=== PATIENT | male | born 1935 | race Caucasian/White ===

== ENCOUNTER → 2019-05-11 | Day surgery (SDC) | payer MEDICARE, BC ==
[2019-05-07 14:24] LABS: BASOPHILS # (AUTO) 0.1 (0.0-0.1); EOSINOPHILS # (AUTO) 0.1 (0.0-0.4); EOSINOPHILS % 1.8 % (0.0-6.0); HEMATOCRIT 42.9 % (38.2-49.6); HEMOGLOBIN 14.1 g/dL (14.0-18.0); LYMPHOCYTES # (AUTO) 1.8 (1.0-3.2); LYMPHOCYTES % 37.1 % (18.0-39.1); MEAN CORPUSCULAR HEMOGLOBIN 29.3 pg (28-32); MEAN CORPUSCULAR HGB CONC 32.9 g/dL (31-35); MONOCYTES # (AUTO) 0.4 (0.2-0.8); NEUTROPHILS # (AUTO) 2.5 (2.1-6.9); NEUTROPHILS % 50.7 % (38.7-80.0); PLATELET COUNT 134 x10e3/uL (140-360); RED BLOOD COUNT 4.82 x10e6/uL (4.3-5.7); RED CELL DISTRIBUTION WIDTH 13.9 % (11.7-14.4)
[~2019-05-11] MED LIST: ASPIRIN81 M1 PO; BIOTIN1 MG PEG; CALCIUM600 MG PO; CENTRUM SILVER1 EAC1; CRESTOR5 MG PO; FENTANYL CITRATE/PF 100MCG/2 ML INJ ONE; FISH OIL 1,2001 EACH; HYOSCYAMINE 0.125 MG TAB ONE; MAGNESIUM250 M1 PO; METAMUCIL FIBE1 EACH; MIDAZOLAM HCL 2 MG/2 ML VIAL ONE; MIDODRINE HCL2.5 MG PO; MOVE FREE PO; TAMSULOSIN HCL0.4 MG PO; TYLENOL ARTHRITIS PO; VITAMIN B12-FO1 EACH PO; VITAMIN C1000 MG PO; VITAMIN D1000 UNI1 PO
[2019-05-11 11:00] VITALS: BP 105/66
--- OUTSIDE RECORDS SUMMARY | 2019-05-11 11:12 | XMS REPORT | Clinical Summary ---
Author Author Rashid Sabianist Organization [facility] Address Unknown Phone Unavailable Care Team Providers Care Pompom Maker Name Role Phone Eric Max MD PCP Allergies No Known Allergies Medications End Date Status Medication Sig Dispensed Refills Start Date Active rosuvastatin (CRESTOR) 5 Take 5 mg by 0 MG tablet mouth daily. Active tamsulosin (FLOMAX) 0.4 Take 0.4 mg 0 mg capsule by mouth daily. Active finasteride (PROSCAR) 5 Take 5 mg by 0 mg tablet mouth daily. Active aspirin (ECOTRIN) 81 MG Take 81 mg by 0 enteric coated tablet mouth daily. Active multivitamin (THERAGRAN) Take 1 tablet 0 tablet by mouth daily. Active acetaminophen (TYLENOL) Take 500 mg 0 500 MG tablet by mouth every 6 (six) hours as needed for mild pain. Active ascorbic acid, vitamin C, Take 1,000 mg 0 (vitamin C) 1000 MG by mouth tablet daily. 11/21/2018 midodrine (PROAMATINE) 5 Take 1 tablet 90 tablet 0 MG tablet (5 mg total) 8 by mouth 3 (three) times a day for 30 days. 11/21/2018 fludrocortisone Take 1 tablet 30 tablet 0 (FLORINEF) 0.1 mg tablet (0.1 mg 8 total) by mouth daily for 30 days. 11/21/2018 ipratropium-albuterol Take 3 mL by 270 mL 0 (DUO-NEB) 0.5-2.5 mg/mL nebulization 8 nebulizer every 6 (six) hours while awake for 30 days. Active Problems Problem Noted Date Hypotension 10/21/2018 Benign localized hyperplasia of prostate with urinary retention 10/19/2018 Encounters Care Team Description Date Type Specialty Eric Max MD Thoracic aortic aneurysm without rupture (HCC) (Primary Dx) 05/07/2019 Transcribe Access Orders Eric Max MD 05/01/2019 Transcribe Access Orders Radu Méndez Back pain, unspecified back location, unspecified back pain laterality, unspecified chronicity (Primary Dx) 01/03/2019 Office Visit Orthopedic Surgery Harinder Lovelace MD Dizziness and giddiness; Other cerebral infarction due to occlusion or stenosis of small artery; Cerebral infarction, unspecified mechanism (HCC) 12/07/2018 Hospital Radiology Encounter Harinder Lovelace MD Dizziness and giddiness; Other cerebral infarction due to occlusion or stenosis of small artery; Cerebral infarction, unspecified mechanism (HCC) 12/07/2018 Hospital Radiology Encounter Harinder Lovelace MD Dizziness and giddiness; Other cerebral infarction due to occlusion or stenosis of small artery; Cerebral infarction, unspecified mechanism (HCC) 12/07/2018 Hospital Radiology Encounter Harinder Lovelace MD Dizziness and giddiness (Primary Dx); Other cerebral infarction due to occlusion or stenosis of small artery; Cerebral infarction, unspecified mechanism (HCC) 12/04/2018 Transcribe Access Orders Natalia Helm, INFORMATICS NURSE SPECIALIST 10/19/2018 Anesthesia Urology Event Gigi Johnston MD CYSTO, SALINE TURP (BIPOLAR), LITHOLAPAXY 10/19/2018 Surgery Urology Gigi Johnston MD Benign localized hyperplasia of prostate with urinary retention; Bladder stone 10/19/2018 [facility] General Internal Medicine - Encounter 10/24/2018 Gigi Johnston MD Preop examination (Primary Dx) 10/04/2018 Pre-Admit Pre-Admission Testing Testing Appointment Laurent Long MD Cervical pain 09/13/2018 Hospital Radiology Encounter Laurent Long MD Cervical pain (Primary Dx) 09/07/2018 Transcribe Access Eric Carballo MD Dyspnea, unspecified type 08/14/2018 Hospital Radiology Encounter Eric Max MD Dyspnea, unspecified type (Primary Dx) 08/14/2018 Transcribe Access Orders Eric Max MD Shortness of breath (Primary Dx); Palpitations 08/06/2018 Lab Lab after 05/10/2018 Social History Date Tobacco Use Types Packs/Day Years Used Quit: 1957 Former Smoker 0.5 5 Smokeless Tobacco: Never Used Alcohol Use Drinks/Week oz/Week Comments No Alcohol Habits Answer Date Recorded How often do you have a drink containing alcohol? Never 10/04/2018 How many drinks containing alcohol do you have on Not asked a typical day when you are drinking? How often do you have six or more drinks on one Not asked occasion? Sex Assigned at Date Recorded Not on file Industry Job Start Date Occupation Not on file Not on file Not on file Travel End Travel History Travel Start No recent travel history available. Last Filed Vital Signs Time Taken Vital Sign Reading 10/24/2018 10:41 AM RUBBER PRINTING MACHINE OPERATOR Blood Pressure 111/61 10/24/2018 1:29 PM RUBBER PRINTING MACHINE OPERATOR Pulse 66 10/24/2018 10:41 AM RUBBER PRINTING MACHINE OPERATOR Temperature 36 C (96.8 F) 10/24/2018 1:29 PM RUBBER PRINTING MACHINE OPERATOR Respiratory Rate 18 10/24/2018 1:15 PM RUBBER PRINTING MACHINE OPERATOR Oxygen Saturation 94% - Inhaled Oxygen - Concentration 10/19/2018 12:26 PM RUBBER PRINTING MACHINE OPERATOR Weight 113 kg (249 lb) 10/19/2018 12:26 PM RUBBER PRINTING MACHINE OPERATOR Height 190.5 cm (6' 3") 10/19/2018 12:26 PM RUBBER PRINTING MACHINE OPERATOR Body Mass Index 31.12 Plan of Treatment Care Team Description Date Type Specialty Eric Max MD [address] [facility] [address] [place] [address] 05/22/2019 Appointment Radiology Health Maintenance Due Date Last Done Comments SHINGLES VACCINES (#1) 1986 65+ PNEUMOCOCCAL VACCINE 2001 07/30/2016 (2 of 2 - PPSV23) INFLUENZA VACCINE 05/30/2019 05/19/2018 Procedures Comments Procedure Name Priority Date/Time Associated Diagnosis XR SPINE SCOLIOSIS 2-3 Routine 01/03/2019 Back pain, unspecified VIEWS 1:39 PM RUBBER PRINTING MACHINE OPERATOR back location, unspecified back pain laterality, unspecified chronicity MRA NECK WO CONTRAST Routine 12/07/2018 Dizziness and giddiness 1:51 PM RUBBER PRINTING MACHINE OPERATOR Other cerebral infarction due to occlusion or stenosis of small artery Cerebral infarction, unspecified mechanism (HCC) MRA HEAD WO CONTRAST Routine 12/07/2018 Dizziness and giddiness 1:51 PM RUBBER PRINTING MACHINE OPERATOR Other cerebral infarction due to occlusion or stenosis of small artery Cerebral infarction, unspecified mechanism (HCC) MRI BRAIN WO CONTRAST Routine 12/07/2018 Dizziness and giddiness 1:51 PM RUBBER PRINTING MACHINE OPERATOR Other cerebral infarction due to occlusion or stenosis of small artery Cerebral infarction, unspecified mechanism (HCC) HC COMPLETE BLD COUNT Routine 10/23/2018 W/AUTO DIFF 4:30 AM RUBBER PRINTING MACHINE OPERATOR ESTIMATED GFR Routine 10/23/2018 4:00 AM RUBBER PRINTING MACHINE OPERATOR BASIC METABOLIC PANEL Routine 10/23/2018 4:00 AM RUBBER PRINTING MACHINE OPERATOR ESTIMATED GFR Routine 10/22/2018 4:30 AM RUBBER PRINTING MACHINE OPERATOR B NATRIURETIC PEPTIDE Routine 10/22/2018 4:30 AM RUBBER PRINTING MACHINE OPERATOR HC COMPLETE BLD COUNT Routine 10/22/2018 W/AUTO DIFF 4:30 AM RUBBER PRINTING MACHINE OPERATOR BASIC METABOLIC PANEL Routine 10/22/2018 4:30 AM RUBBER PRINTING MACHINE OPERATOR ARTERIAL BLOOD GAS Routine 10/22/2018 4:00 AM RUBBER PRINTING MACHINE OPERATOR NM LUNG VENTILATION STAT 10/21/2018 PERFUSION 10:52 PM RUBBER PRINTING MACHINE OPERATOR CT CHEST WO CONTRAST Routine 10/21/2018 3:35 PM RUBBER PRINTING MACHINE OPERATOR ECHOCARDIOGRAM 2D Routine 10/21/2018 COMPLETE W MMODE SPECTRAL 9:57 AM RUBBER PRINTING MACHINE OPERATOR COLOR DOPPLER ([id number]) ESTIMATED GFR Routine 10/21/2018 4:15 AM RUBBER PRINTING MACHINE OPERATOR HC COMPLETE BLD COUNT Routine 10/21/2018 W/AUTO DIFF 4:15 AM RUBBER PRINTING MACHINE OPERATOR BASIC METABOLIC PANEL Routine 10/21/2018 4:15 AM RUBBER PRINTING MACHINE OPERATOR ECG 12-LEAD Routine 10/20/2018 9:21 PM RUBBER PRINTING MACHINE OPERATOR XR CHEST 1 VW PORTABLE Routine 10/20/2018 9:00 PM RUBBER PRINTING MACHINE OPERATOR ECG PRE/POST OP STAT 10/19/2018 6:59 PM RUBBER PRINTING MACHINE OPERATOR SURGICAL PATHOLOGY Routine 10/19/2018 REQUEST 3:54 PM RUBBER PRINTING MACHINE OPERATOR CALCULI ANALYSIS WITH Routine 10/19/2018 PHOTO 3:54 PM RUBBER PRINTING MACHINE OPERATOR ID AN ELECTIVE Routine 10/19/2018 SUPRAGLOTTIC AIRWAY 3:17 PM RUBBER PRINTING MACHINE OPERATOR Procedure Note - Aria Brand CRNA - 10/19/2018 3:17 PM RUBBER PRINTING MACHINE OPERATOR ANESTHESIA INTUBATION Performed by: Aria Brand CRNA Authorized by: Anna Tamayo MD Location: OR Urgency: Elective Difficult Airway: No Anesthesio logist: Anna Tamayo MD Performed by: anesthesio logist Preoxygena ray with 100% O2: Yes Mask Ventilatio n: Easy mask Final Airway Type: Supraglott ic airway Final LMA: Ambu LMA Size: 5 Number of Attempts at Approach: 1 CYSTO, SALINE TURP 10/19/2018 Benign localized (BIPOLAR) 1:30 PM RUBBER PRINTING MACHINE OPERATOR hyperplasia of prostate with urinary retention Bladder stone Case Notes REQ 1230 START, @0943 TUCKER R/S FROM 10/10 TO 10/11-09/01 0/18TW Special Needs REQ 1230 START,POSS IBLE EXTENDED RECOVERY NEEDED ESTIMATED GFR Routine 10/04/2018 10:39 AM RUBBER PRINTING MACHINE OPERATOR URINALYSIS SCREEN AND Routine 10/04/2018 Preop examination MICROSCOPY, WITH REFLEX 10:39 AM RUBBER PRINTING MACHINE OPERATOR TO CULTURE CBC HEMOGRAM Routine 10/04/2018 Preop examination 10:39 AM RUBBER PRINTING MACHINE OPERATOR PARTIAL THROMBOPLASTIN Routine 10/04/2018 Preop examination TIME (PTT) 10:39 AM RUBBER PRINTING MACHINE OPERATOR PROTHROMBIN TIME WITH INR Routine 10/04/2018 Preop examination 10:39 AM RUBBER PRINTING MACHINE OPERATOR BASIC METABOLIC PANEL Routine 10/04/2018 Preop examination 10:39 AM RUBBER PRINTING MACHINE OPERATOR URINE CULTURE Routine 10/04/2018 10:39 AM RUBBER PRINTING MACHINE OPERATOR GRAM STAIN Routine 10/04/2018 10:39 AM RUBBER PRINTING MACHINE OPERATOR MRI CERVICAL SPINE WO Routine 09/13/2018 Cervical pain CONTRAST 1:28 PM RUBBER PRINTING MACHINE OPERATOR XR CHEST 2 VW Routine 08/14/2018 Dyspnea, unspecified type 1:45 PM CDT ESTIMATED GFR Routine 08/06/2018 11:20 AM CDT BUN LEVEL Routine 08/06/2018 Shortness of breath 11:20 AM CDT Palpitations CREATININE LEVEL Routine 08/06/2018 Shortness of breath 11:20 AM CDT Palpitations HC COMPLETE BLD COUNT Routine 08/06/2018 Shortness of breath W/AUTO DIFF 11:20 AM CDT Palpitations ELECTROLYTE (CHEM4) Routine 08/06/2018 Shortness of breath 11:20 AM CDT Palpitations after 05/10/2018 Results * XR Spine Scoliosos 2-3 Views (01/03/2019 1:39 PM RUBBER PRINTING MACHINE OPERATOR) Specimen Narrative Performed At [facility] AP and lateral x-ray of the entire spine were done.They show overall his alignment is quite good.He does have multilevel cervical spondylosis. No ntaanael malalignment. Performing Organization Address City/State/Zipcode Phone Number [facility] [address] [place] [address] * MRI Brain Wo Contrast (12/07/2018 1:51 PM RUBBER PRINTING MACHINE OPERATOR) Specimen Narrative Performed At EXAMINATION: MRI BRAIN WO CONTRAST [facility] CLINICAL HISTORY: R42 Dizziness and giddiness, I63.81 Other cerebral infarction due to occlusion or stenosis of small artery, I63.81I63.89R42 COMPARISON:None TECHNIQUE: Multiplanar and multisequence MRI imaging of the brain was obtained without contrast. FINDINGS: There is no definite evidence of acute infarct, intracranial hemorrhage or mass, hydrocephalus or midline shift. There are scattered nonspecific white matter changes. There is mild nonspecific enlargement of the ventricles and extra axial space greater in the anterior region. The orbits, sinuses and mastoid air cells do not show acute abnormality. There is pseudophakia. The nasal septum deviates towards the right. IMPRESSION: No acute findings in the brain or extra axial region. [facility]-[id number] Procedure Note Interface, Radiology Results Incoming - 12/07/2018 2:30 PM RUBBER PRINTING MACHINE OPERATOR EXAMINATION: MRI BRAIN WO CONTRAST CLINICAL HISTORY: R42 Dizziness and giddiness, I63.81 Other cerebral infarction due to occlusion or stenosis of small artery, I63.81 I63.89 R42 COMPARISON: None TECHNIQUE: Multiplanar and multisequence MRI imaging of the brain was obtained without contrast. FINDINGS: There is no definite evidence of acute infarct, intracranial hemorrhage or mass, hydrocephalus or midline shift. There are scattered nonspecific white matter changes. There is mild nonspecific enlargement of the ventricles and extra axial space greater in the anterior region. The orbits, sinuses and mastoid air cells do not show acute abnormality. There is pseudophakia. The nasal septum deviates towards the right. IMPRESSION: No acute findings in the brain or extra axial region. [facility]-[id number] Performing Organization Address City/State/Zipcode Phone Number [facility] [address] [place] [address] * MRA Neck Wo Contrast (12/07/2018 1:51 PM RUBBER PRINTING MACHINE OPERATOR) Specimen Narrative [facility] At [facility] EXAMINATION: MRA NECK WO CONTRAST CLINICAL HISTORY: R42 Dizziness and giddiness, I63.81 Other cerebral infarction due to occlusion or stenosis of small artery, I63.81I63.89R42. Evaluate for artery stenosis COMPARISON:None TECHNIQUE: 2-D and 3-D [id number] MRA images of the cervical vessels were obtained with multiplanar and 3-D reconstructive algorithms. FINDINGS: Unremarkable MRA of the neck with no significant stenosis by NASCET criteria. The left vertebral artery is dominant. Artifacts obscure some detail of the soft tissue structures in the neck. No significant incidental thyroid gland mass is seen. IMPRESSION: Unremarkable MRA of the neck with no significant stenosis by NASCET criteria. [facility]-[id number] Procedure Note Interface, Radiology Results Incoming - 12/07/2018 2:30 PM RUBBER PRINTING MACHINE OPERATOR EXAMINATION: MRA NECK WO CONTRAST CLINICAL HISTORY: R42 Dizziness and giddiness, I63.81 Other cerebral infarction due to occlusion or stenosis of small artery, I63.81 I63.89 R42. Evaluate for artery stenosis COMPARISON: None TECHNIQUE: 2-D and 3-D [id number] MRA images of the cervical vessels were obtained with multiplanar and 3-D reconstructive algorithms. FINDINGS: Unremarkable MRA of the neck with no significant stenosis by NASCET criteria. The left vertebral artery is dominant. Artifacts obscure some detail of the soft tissue structures in the neck. No significant incidental thyroid gland mass is seen. IMPRESSION: Unremarkable MRA of the neck with no significant stenosis by NASCET criteria. [facility]-[id number] Performing Organization Address City/State/Zipcode Phone Number [facility] [address] [place] [address] * MRA Head Wo Contrast (12/07/2018 1:51 PM RUBBER PRINTING MACHINE OPERATOR) Specimen Narrative Performed At EXAMINATION: MRA HEAD WO CONTRAST [facility] CLINICAL HISTORY: R42 Dizziness and giddiness, I63.81 Other cerebral infarction due to occlusion or stenosis of small artery, I63.81I63.89R42. Evaluate for artery stenosis COMPARISON:None. TECHNIQUE: [id number] MRA images of the cabazon of Roberto vessels were obtained with multiplanar and 3-D reconstructive algorithms. FINDINGS: There is flow in the anterior communicating artery. There is no evidence of significant focal stenosis in the major arteries forming the cabazon of Roberto. The distal vertebral and basilar and distal internal carotid arteries do not show significant focal stenosis. I do not see definite evidence of aneurysm or arterial venous malformation. IMPRESSION: Unremarkable MRA of the cabazon of Roberto with no significant abnormality. [facility]-[id number] Procedure Note Interface, Radiology Results Incoming - 12/07/2018 2:31 PM RUBBER PRINTING MACHINE OPERATOR EXAMINATION: MRA HEAD WO CONTRAST CLINICAL HISTORY: R42 Dizziness and giddiness, I63.81 Other cerebral infarction due to occlusion or stenosis of small artery, I63.81 I63.89 R42. Evaluate for artery stenosis COMPARISON: None. TECHNIQUE: [id number] MRA images of the cabaz[place] vessels were obtained with multiplanar and 3-D reconstructive algorithms. FINDINGS: There is flow in the anterior communicating artery. There is no evidence of significant focal stenosis in the major arteries forming the cabazon of Roberto. The distal vertebral and basilar and distal internal carotid arteries do not show significant focal stenosis. I do not see definite evidence of aneurysm or arterial venous malformation. IMPRESSION: Unremarkable MRA of the cabazon of Roberto with no significant abnormality. [facility]-[id number] Performing Organization Address City/State/Zipcode Phone Number [facility] [address] [place] [address] * CBC with platelet and differential (10/23/2018 4:30 AM RUBBER PRINTING MACHINE OPERATOR) Only the most recent of 4 results within the time period is included. WBC 6.89 4.50 - 11.00 k/uL [facility] RBC 3.99 (L) 4.40 - 6.00 m/uL [facility] HGB 11.7 (L) 14.0 - 18.0 g/dL [facility] HCT 35.7 (L) 41.0 - 51.0 % [facility] MCV 89.5 82.0 - 100.0 fL [facility] MCH 29.3 27.0 - 34.0 pg [facility] MCHC 32.8 31.0 - 37.0 g/dL [facility] RDW - SD 42.6 37.0 - 55.0 fL [facility] MPV 11.4 8.8 - 13.2 fL [facility] Platelet count 123 (L) 150 - 400 k/uL [facility] Nucleated RBC 0.00 /100 WBC [facility] Neutrophils 66.2 39.0 - 69.0 % [facility] Lymphocytes 21.6 (L) 25.0 - 45.0 % [facility] Monocytes 9.3 0.0 - 10.0 % [facility] Eosinophils 1.9 0.0 - 5.0 % [facility] Basophils 0.7 0.0 - 1.0 % [facility] Immature 0.3Comment: "Immature 0.0 - 1.0 % KRESS granulocytes granulocytes" (promyelocytes, ORIENTAL ORTHODOX myelocytes, metamyelocytes) [facility] Specimen Blood Performing Organization Address City/State/Zipcode Phone Number [facility] DEPARTMENT OF [address] [place] [address] PATHOLOGY AND GENOMIC MEDICINE [place] [id number] * Estimated GFR (10/23/2018 4:00 AM RUBBER PRINTING MACHINE OPERATOR) Only the most recent of 5 results within the time period is included. [facility] Estimated GFR 68 mL/min/1.73 m2 KRESS Comment: [facility] rpretation G1 >=90 Normal or high G2 60-89Mildly decreased [id number] Mildly to moderately decreased [id number] Moderately to severely decreased G4 15-29Severely decreased G5 <15Kidney failure The eGFR was calculated using the Chronic Kidney Disease Epidemiology Collaboration (CKD-EPI) equation. Interpretation is based on recommendations of the National Kidney Foundation-Kidney Disease Outcomes Quality Initiative (NKF-KDOQI) published in 2014. Specimen Plasma specimen Performing Organization Address City/[facility] Phone Number [facility] DEPARTMENT [address] * Basic metabolic panel (10/23/2018 4:00 AM RUBBER PRINTING MACHINE OPERATOR) Only the most recent of 4 results within the time period is included. [facility] Sodium 139 135 - 148 mEq/L [facility] Potassium 3.5 3.5 - 5.0 mEq/L [facility] Chloride 101 98 - 112 mEq/L [facility] CO2 26 24 - 31 mEq/L [facility] Anion gap 12@ANIO 7 - 15 mEq/L [facility] BUN 21 8 - 23 mg/dL [facility] Creatinine 1.02 0.70 - 1.20 mg/dL [facility] Glucose 136 (H) 65 - 99 mg/dL [facility] Calcium 8.9 8.8 - 10.2 mg/dL [facility] Specimen Plasma specimen Performing Organization Address City/[facility] Phone Number [facility] [place] [address] PATHOLOGY AND [facility] MEDICINE [address] * B natriuretic peptide (10/22/2018 4:30 AM RUBBER PRINTING MACHINE OPERATOR) [facility] BNP 586 (H) 0 - 100 pg/mL [facility] Specimen Blood Performing Organization Address City/[facility] Phone Number [facility] [place] [address] PATHOLOGY AND [facility] MEDICINE [address] * Arterial blood gas (10/22/2018 4:00 AM RUBBER PRINTING MACHINE OPERATOR) pH, arterial 7.37 7.35 - 7.45 [facility] pCO2, arterial 49 (H) 35 - 45 mmHg [facility] pO2, arterial 97 (H) 80 - 90 mmHg [facility] Bicarbonate, 27.7 21.0 - 28.0 mmol/L [facility] Base excess, 2 -2 - 2 mEq/L [facility] O2 saturation, 98 95 - 100 % [facility] Specimen Blood Performing Organization Address [facility] Phone Number [facility] DEPARTMENT OF [address] [place] [address] PATHOLOGY AND GENOMIC MEDICINE [address] [address] [facility] * NM Lung Ventilation Perfusion (10/21/2018 10:52 PM RUBBER PRINTING MACHINE OPERATOR) Specimen Narrative Performed At PROCEDURE:KY LUNG VENTILATION PERFUSION [facility] INDICATION:Dyspnea. COMPARISON:CT chest dated same day. TECHNIQUE:Planar ventilation images were acquired after the inhalation of 15 mCi of Xe-133 gas. Planar perfusion images were acquired after the IV administration of 5 mCi of Tc-99m MAA. FINDINGS:Ventilation images demonstrate decreased ventilation to the lung periphery and bases. Washout images demonstrate basilar gas trapping.Perfusion images demonstrate decreased perfusion to the lung periphery and bases, matching the ventilation images.No mismatched defects. IMPRESSION: 1.Low probability for PE. [facility]-[id number] Procedure Note Interface, Radiology Results Incoming - 10/21/2018 11:14 PM RUBBER PRINTING MACHINE OPERATOR PROCEDURE: NM LUNG VENTILATION PERFUSION INDICATION: Dyspnea. COMPARISON: CT chest dated same day. TECHNIQUE: Planar ventilation images were acquired after the inhalation of 15 mCi of Xe-133 gas. Planar perfusion images were acquired after the IV administration of 5 mCi of Tc-99m MAA. FINDINGS: Ventilation images demonstrate decreased ventilation to the lung periphery and bases. Washout images demonstrate basilar gas trapping. Perfusion images demonstrate decreased perfusion to the lung periphery and bases, matching the ventilation images. No mismatched defects. IMPRESSION: 1. Low probability for PE. [id number] Performing Organization Address City/[facility] Phone Number [facility] [address] [place] [address] * CT Chest Wo Contrast (10/21/2018 3:35 PM RUBBER PRINTING MACHINE OPERATOR) Specimen Narrative Performed At EXAMINATION: RADIANT CT CHEST WO CONTRAST CLINICAL HISTORY: HypoxiaILD protocol TECHNIQUE: Multiple axial images of the chest were obtained without intravenous contrast. The lack of intravenous contrast reduces the sensitivity of detecting solid organ disease and evaluating vasculature. Sagittal and coronal computerized reformatted images were also obtained. DOSE REDUCTION: CT imaging was performed with iterative reconstruction technique and/or automated exposure control to reduce radiation dose. COMPARISON: Single view chest from 10/20/2018 and MRA chest from 01/23/2018 and abdominal MRI from 03/2012 FINDINGS: 1.Bilateral lower lobe bronchiectasis is noted with peribronchial thickening. No honeycombing. No significant interstitial thickening. No focal areas of consolidation. No noncalcified pulmonary nodules. No pleural effusions. Vague ground glass airspace disease is noted which is nonspecific. The trachea and main bronchi are clear. 2.Mild bilateral air trapping is seen on inspiratory versus expiratory CT images. 3.No mediastinal, hilar, or axillary lymphadenopathy. 4.A stable ascending thoracic aortic aneurysm is again seen measuring 4.9 cm in greatest AP diameter. This is unchanged when compared to previous MRA chest from 01/23/2018. The aortic arch measures 4.7 cm in greatest AP diameter. The descending thoracic aorta at the level of the pulmonary arteries measures 3.3 cm and at the level of the hiatus measures 2.7 cm. A minimal amount of calcified atherosclerotic disease is noted. 5.The cardiac size is normal. No pericardial effusion. 6.The pulmonary trunk is normal in caliber. 7.A low-density nodule is seen within the inferior margin of the right lobe the thyroid measuring 1.7 cm. This could be better evaluated with ultrasound as clinically indicated. The left lobe of the thyroid contains some dystrophic calcification inferiorly. 8.The bones of the chest are within normal limits. 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 9.Limited, noncontrast evaluation of the upper abdomen suggests 2 exophytic cysts arising from the superior pole of the right kidney, and multiple small foci of decreased attenuation within the right lobe the liver. These most likely represent cysts which were demonstrated on prior MRI from 03/2012. Cholelithiasis. IMPRESSION: 1.Mild bilateral lower lobe bronchiectasis with bilateral air trapping. 2.Stable appearing ascending thoracic aortic aneurysm measuring 4.9 cm in greatest AP diameter. 3.Other incidental findings as above. [id number] Procedure Note Interface, Radiology Results Incoming - 10/21/2018 3:55 PM RUBBER PRINTING MACHINE OPERATOR EXAMINATION: CT CHEST WO CONTRAST CLINICAL HISTORY: Hypoxia ILD protocol TECHNIQUE: Multiple axial images of the chest were obtained without intravenous contrast. The lack of intravenous contrast reduces the sensitivity of detecting solid organ disease and evaluating vasculature. Sagittal and coronal computerized reformatted images were also obtained. DOSE REDUCTION: CT imaging was performed with iterative reconstruction technique and/or automated exposure control to reduce radiation dose. COMPARISON: Single view chest from 10/20/2018 and MRA chest from 01/23/2018 and abdominal MRI from 03/2012 FINDINGS: 1. Bilateral lower lobe bronchiectasis is noted with peribronchial thickening. No honeycombing. No significant interstitial thickening. No focal areas of consolidation. No noncalcified pulmonary nodules. No pleural effusions. Vague ground glass airspace disease is noted which is nonspecific. The trachea and main bronchi are clear. 2. Mild bilateral air trapping is seen on inspiratory versus expiratory CT images. 3. No mediastinal, hilar, or axillary lymphadenopathy. 4. A stable ascending thoracic aortic aneurysm is again seen measuring 4.9 cm in greatest AP diameter. This is unchanged when compared to previous MRA chest from 01/23/2018. The aortic arch measures 4.7 cm in greatest AP diameter. The descending thoracic aorta at the level of the pulmonary arteries measures 3.3 cm and at the level of the hiatus measures 2.7 cm. A minimal amount of calcified atherosclerotic disease is noted. 5. The cardiac size is normal. No pericardial effusion. 6. The pulmonary trunk is normal in caliber. 7. A low-density nodule is seen within the inferior margin of the right lobe the thyroid measuring 1.7 cm. This could be better evaluated with ultrasound as clinically indicated. The left lobe of the thyroid contains some dystrophic calcification inferiorly. 8. The bones of the chest are within normal limits. 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 9. Limited, noncontrast evaluation of the upper abdomen suggests 2 exophytic cysts arising from the superior pole of the right kidney, and multiple small foci of decreased attenuation within the right lobe the liver. These most likely represent cysts which were demonstrated on prior MRI from 03/2012. Cholelithiasis. IMPRESSION: 1. Mild bilateral lower lobe bronchiectasis with bilateral air trapping. 2. Stable appearing ascending thoracic aortic aneurysm measuring 4.9 cm in greatest AP diameter. 3. Other incidental findings as above. [facility]-[id number] Performing Organization Address City/State/Zipcode Phone Number [facility] [address] [place] [address] * Echocardiogram complete w contrast and 3D if needed (10/21/2018 9:57 AM RUBBER PRINTING MACHINE OPERATOR) Specimen Narrative Performed At [facility] Echocardiography Report [id number] [facility], [facility] [address], [place] [id number] Pat.Name:LAKSHMI SHEPPARD Pat.ID:[id number] St.Date: 10/21/2018Refer.MD:Gigi Johnston MD Exam Time: 9:06:00 AMStudy Type:Routine Echo Height:75inWeight:250lb BSA: 2.41 m2 DOBAge:1935,83Y Sex: MALEBP:80/42 HR:52 bpmSonogrphr: PIERCE Nuñez, [facility] Pat. Stat.:Inpatient Room:[facility] Study Status:Final Echo Event ID:[id number] Order ID:[id number] Reason for Study:Hypotension Procedures:2D Echo, Colorflow Doppler, Intravenous Optison Contrast Race:C SUMMARY: Normal biventricular size and systolic function. Normal LV filling pressure. No pericardial effusion and no hemodynamically significant valvular pathology. FINDINGS: LV: LV size is normal. There is mild concentric LV hypertrophy. LVEF is normal. Overall wall motion is normal. Estimated EFis 60-64%. RV: RV size is normal. RV systolic function is normal. LA: LA volume is severely enlarged. RA: RA volume is normal. AO: Aortic root diameter is normal in size. CATALINO: No pericardial effusion. AV: Focal calcification of AV leaflets. A trace of aortic regurgitation. MV: Thickened and/or calcified mitral annulus. PV: No structural PV abnormalities noted. TV: No structural TV abnormalities noted. Berman: LV filling pressure is normal. Diastolic dysfunction Grade I (Mild):Impaired relaxation with normal LV filling pressures. Other:Insufficient TR jet to estimate PA systolic pressure. MEASUREMENTS: 2D Parasternal [place] LVOT 2.5 cmLA Ds5.3 cm LVIDd4.9 cmIndex2 cm/m Ao An2.1 cm LVIDs3.3 cmAo Rtd 4 cm Index1.7 cm/m LV%fs 32.7 % LV Agkt588.7 g(122-174) IVSd 1.3 cmLVM Eltnf677.3 g/m2 LVPWd1.3 cmRWT0.5 LA Sng Plane LA Area 36.1 cm2(8.8-23.4) LA Vol 157.5 ml Index65.4 ml/m LA LngAx 7.5 cm Signed 10/21/2018 09:05 PM Shruthi Shane M.D. Procedure Note Interface, Radiology Results In - 10/21/2018 9:05 PM RUBBER PRINTING MACHINE OPERATOR Echocardiography Report [id number] [place] [address] Pat.Name: LAKSHMI SHEPPARD Pat.ID: [id number] .Date: 10/21/2018 Refer.MD: Gigi Johnston MD Exam Time: 9:06:00 AM Study Type:Routine Echo Height: 75in Weight: 250lb BSA: 2.41 m2 Age: 8 1935,83Y Sex: MALE BP: 80/42 HR: 52 bpm Sonogrphr: PIERCE Nuñez, [facility] Pat. Stat.:Inpatient Room: [facility] Study Status:Final Echo Event ID:[id number] Order ID: [id number] Reason for Study:Hypotension Procedures:2D Echo, Colorflow Doppler, Intravenous Optison Contrast Race: C SUMMARY: Normal biventricular size and systolic function. Normal LV filling pressure. No pericardial effusion and no hemodynamically significant valvular pathology. FINDINGS: LV: LV size is normal. There is mild concentric LV hypertrophy. LV EF is normal. Overall wall motion is normal. Estimated EF is 60-64%. RV: RV size is normal. RV systolic function is normal. LA: LA volume is severely enlarged. RA: RA volume is normal. AO: Aortic root diameter is normal in size. CATALINO: No pericardial effusion. AV: Focal calcification of AV leaflets. A trace of aortic regurgitation. MV: Thickened and/or calcified mitral annulus. PV: No structural PV abnormalities noted. TV: No structural TV abnormalities noted. Berman: LV filling pressure is normal. Diastolic dysfunction Grade I (Mild): Impaired relaxation with normal LV filling pressures. Other: Insufficient TR jet to estimate PA systolic pressure. MEASUREMENTS: 2D Parasternal [place] LVOT 2.5 cm LA Ds 5.3 cm LVIDd 4.9 cm Index 2 cm/m Ao An 2.1 cm LVIDs 3.3 cm Ao Rtd 4 cm Index 1.7 cm/m LV%fs 32.7 % LV Mass 253.7 g (122-174) IVSd 1.3 cm LVM Index 105.3 g/m2 LVPWd 1.3 cm RWT 0.5 LA Sng Plane LA Area 36.1 cm2 (8.8-23.4) LA Vol 157.5 ml Index 65.4 ml/m LA LngAx 7.5 cm Signed 10/21/2018 09:05 PM Shruthi Shane M.D. Performing Organization Address [facility] Phone Number [facility] [address] [place] [address] * ECG 12 lead (10/20/2018 9:21 PM RUBBER PRINTING MACHINE OPERATOR) Ventricular 65 [facility] MUSE rate Atrial rate 65 [facility] ID interval 162 [facility] QRSD interval 98 [facility] QT interval 410 [facility] QTC interval 426 [facility] MUSE P axis 1 15 HM MUSE QRS axis 1 26 [facility] MUSE T wave axis 56 [facility] MUSE EKG impression Sinus rhythm with occasional [facility] MUSE premature ventricular complexes-Otherwise normal ECG-In automated comparison with ECG of 19-OCT-2018 18:59,-premature ventricular complexes are now present- Specimen Narrative Performed At Performing Organization Address [facility] [place] Phone Number [facility] MUSE [address] [place] [address] * XR Chest 1 Vw Portable (10/20/2018 9:00 PM RUBBER PRINTING MACHINE OPERATOR) Specimen Narrative Performed At EXAMINATION: XR CHEST 1 VW PORTABLE [facility] INDICATION: Asphyxia and hypoxemia COMPARISON: 08/14/2018 IMPRESSION: Low lung volumes. New patchy linear opacities in both lung bases, in part due to atelectasis but also concerning for superimposed aspiration/pneumonia. Trace bilateral pleural effusions. No pneumothorax. Unchanged cardiomediastinal silhouette given differences in lung inflation. Aortic calcifications. Multifocal osseous degenerative changes. [facility]-[id number] Procedure Note Interface, Radiology Results Incoming - 10/20/2018 9:52 PM RUBBER PRINTING MACHINE OPERATOR EXAMINATION: XR CHEST 1 VW PORTABLE INDICATION: Asphyxia and hypoxemia COMPARISON: 08/14/2018 IMPRESSION: Low lung volumes. New patchy linear opacities in both lung bases, in part due to atelectasis but also concerning for superimposed aspiration/pneumonia. Trace bilateral pleural effusions. No pneumothorax. Unchanged cardiomediastinal silhouette given differences in lung inflation. Aortic calcifications. Multifocal osseous degenerative changes. [facility]-[id number] Performing Organization Address City/[facility] Phone Number [facility] [address] [place] [address] * ECG Pre/Post Op (10/19/2018 6:59 PM RUBBER PRINTING MACHINE OPERATOR) Ventricular 72 [facility] rate Atrial rate 72 [facility] ID interval 154 [facility] QRSD interval 88 [facility] QT interval 394 [facility] QTC interval 431 [facility] P axis 1 68 [facility] QRS axis 1 49 [facility] T wave axis 71 [facility] MUSE EKG impression Normal sinus rhythm-Normal [facility] MUSE ECG-In automated comparison with ECG of -SEP-2013 10:51,-No significant change was found- Specimen Narrative Performed At Performing Organization Address City/State/Zipcode Phone Number [facility] [address] [place] [address] * Calculi analysis with photo (10/19/2018 3:54 PM RUBBER PRINTING MACHINE OPERATOR) Pathologist [facility] [place] Calculi mass See NoteComment: Specimen mg [facility] mass: 1.49 grams Calculi number Numerous [facility] Calculi size Various mm [facility] Calculi See Note [facility] descrption Comment: Specimen consists of numerous, various sized (1 mm to 9 mm), brown/perea, irregular calculi fragments. Calculi See Note [facility] composition Comment: Calculi composed primarily of: 40% calcium oxalate monohydrate, 10% calcium oxalate dihydrate, and 50% calcium phosphate (hydroxy- and carbonate- apatite). INTERPRETIVE INFORMATION: Calculi (Stone) analysis Calculi are the products of physiological processes that yield crystalline compounds in a matrix of biological compounds and blood.Matrix components are not reported.The clinically significant crystalline components identified in calculi specimens are reported.Gross description may not be consistent with composition determined by FTIR analysis. EER calculi See Note [facility] (stone) Comment: analysis and Access [facility] Enhanced Report photo using either link below: -Direct access: [email or web address] -Enter Username, Password: [email or web address] Username: [email or web address] Password: [email or web address] Performed by [facility], [address] [place] [address] [email or web address], Ellis Martinez MD - Lab. Director Specimen Serum Narrative Performed At [address] LABORATORY [facility] Performing Organization Address City/State/Zipcode Phone Number [facility] [address] [place] [address] [facility] [address] [place] [address] * Surgical pathology request (10/19/2018 3:54 PM RUBBER PRINTING MACHINE OPERATOR) [facility] DEPARTMENT OF PATHOLOGY AND GENOMIC MEDICINE Surgical See link below for PDF Lab [facility] DEPARTMENT pathology Report OF PATHOLOGY report AND GENOMIC MEDICINE Result status This is Final Report for [facility] DEPARTMENT [id number] OF PATHOLOGY AND GENOMIC MEDICINE Specimen Narrative Performed At [address] DEPARTMENT OF [facility] PATHOLOGY AND GENOMIC MEDICINE Performing Organization Address City/[facility]/Zipcode Phone Number [facility] [place] [address] PATHOLOGY AND GENOMIC MEDICINE * Urinalysis screen and microscopy, with reflex to culture (10/04/2018 10:39 AM RUBBER PRINTING MACHINE OPERATOR) Specimen site Clean catch [facility] Color, UA Dark Yellow [facility] Appearance, UA Clear [facility] Specific 1.019 1.001 - 1.035 KRESS gravity, [facility] pH, UA 6.0 5.0 - 8.5 [facility] Protein, UA 2+ (A) Negative [facility] Glucose, UA Negative Negative [facility] Ketones, UA Negative Negative [facility] Bilirubin, UA Negative Negative [facility] Blood, UA Negative Negative [facility] Nitrite, UA Negative Negative [facility] Urobilinogen, <2.0 <2.0 [facility] Leukocyte Trace (A) Negative [facility] esterase, [facility] Epithelial <1 /HPF [facility] cells, [facility] WBC, UA 3 (H) 0 - 1 /HPF [facility] RBC, UA <1 0 - 5 /HPF [facility] Bacteria, UA Few None seen [facility] Yeast, UA None seen [facility] Yeast with None seen [facility] pseudohyphae, [facility] Hyaline casts, >20 (A) /LPF [facility] Specimen Urine Performing Organization Address City/State/Zipcode Phone Number [facility] [place] [address] PATHOLOGY AND [facility] MEDICINE [address] * Partial thromboplastin time, activated (10/04/2018 10:39 AM RUBBER PRINTING MACHINE OPERATOR) Pathologist [facility] [place] PTT 30.0 23.0 - 36.0 sec KRESS Comment: ORIENTAL ORTHODOX PTT therapeutic range for HOSPITAL unfractionated heparin is 61.0-112.0 seconds which corresponds to Anti-Xa 0.3-0.7 U/ml. Specimen Blood Performing Organization Address City/[facility]/Zipcode Phone Number [facility] [place] [address] PATHOLOGY AND [facility]ICINE [address] * Prothrombin time with INR (10/04/2018 10:39 AM RUBBER PRINTING MACHINE OPERATOR) Pathologist [facility] [place] Prothrombin 13.3 11.5 - 14.5 sec [facility] INR 1.0 KRESS Comment: ORIENTAL ORTHODOX The International Normalized HOSPITAL Ratio (INR) is a therapeutic monitoring tool for patients who are stable on oral anticoagulant therapy. An INR of 2.0-3.0 is suggested for deep vein thrombosis/pulmonary embolism. Specimen Blood Performing Organization Address City/[facility] Phone Number [facility] [place] [address] PATHOLOGY AND [facility] [address] * Gram stain (10/04/2018 10:39 AM RUBBER PRINTING MACHINE OPERATOR) [facility] Gram stain Rare WBC's KRESS result No organisms seen [facility] Comment: HOSPITAL Specimen Information Specimen Source: Urine Specimen Site: Clean catch Specimen Urine Performing Organization Address City/[facility]/Zipcode Phone Number [facility] DEPARTMENT OF [address] [place] [address] PATHOLOGY AND [facility] [address] * CBC hemogram (10/04/2018 10:39 AM RUBBER PRINTING MACHINE OPERATOR) [facility] WBC 5.43 4.50 - 11.00 k/uL [facility] RBC 4.53 4.40 - 6.00 m/uL [facility] HGB 13.8 (L) 14.0 - 18.0 g/dL [facility] HCT 42.0 41.0 - 51.0 % [facility] MCV 92.7 82.0 - 100.0 fL [facility] MCH 30.5 27.0 - 34.0 pg [facility] MCHC 32.9 31.0 - 37.0 g/dL [facility] RDW - SD 45.9 37.0 - 55.0 fL [facility] MPV 11.1 8.8 - 13.2 fL [facility] Platelet count 134 (L) 150 - 400 k/uL [facility] Nucleated RBC 0.00 /100 WBC [facility] Specimen Blood Performing Organization Address City/[facility] Phone Number [facility] DEPARTMENT OF [address] [place] [address] PATHOLOGY AND GENOMIC MEDICINE [address] * Urine culture (10/04/2018 10:39 AM RUBBER PRINTING MACHINE OPERATOR) Urine culture Mixed jennifer <=10-3 col/cc KRESS isolate Comment: ORIENTAL ORTHODOX Specimen Information HOSPITAL Specimen Source: Urine Specimen Site: Clean catch Specimen Urine Performing Organization Address City/[facility] Phone Number [facility] [place] [address] PATHOLOGY AND GENOMIC MEDICINE [address] * MRI Cervical Spine Wo Contrast (09/13/2018 1:28 PM RUBBER PRINTING MACHINE OPERATOR) Specimen Narrative Performed At EXAMINATION: MRI CERVICAL SPINE WO CONTRAST HM [facility] CLINICAL HISTORY: M54.2 Cervicalgia, M54.2 COMPARISON:None TECHNIQUE: Multiplanar multisequence noncontrast enhanced examination was performed of the cervical spine. FINDINGS: There is straightening of the cervical lordosis. The craniovertebral junction is unremarkable. There is decreased T2 signal intensity in multiple discs. C2-3: There is mild central spondylosis and ligamentum flavum hypertrophy. There is no significant central canal stenosis. There are facet and uncovertebral joint hypertrophic changes with mild to moderate foramen stenosis on the axial gradient echo images in part congenital in nature. C3-4: There is greater peripheral disc space narrowing with dorsal spondylosis touching the anterior central cord. There is ligamentum flavum hypertrophy. There is mild narrowing of the AP dimension of the central subarachnoid space. There is severe foramen stenosis from facet and uncovertebral joint hypertrophic changes. Spondylosis extends near the right nerve roots in the lateral subarachnoid space. C4-5: There is mild anterolisthesis with greater anterior disc space narrowing. There is uncovered disc and spondylosis with central protrusion touching the anterior cord. There may be mass effect on the ventral nerve roots. There is mild narrowing of the AP dimension of the central subarachnoid space. The severe foramen stenosis from facet and uncovertebral joint hypertrophic changes. C5-6: There is severe peripheral disc space narrowing.There is dorsal spondylosis touching the anterior cord with possible mass effect on the ventral nerve roots. There is ligamentum flavum hypertrophy indenting the posterior lateral subarachnoid space. There is moderate narrowing of the AP dimension of the central subarachnoid space. There is severe foramen stenosis from facet and uncovertebral joint hypertrophy. C6-7: There is severe disc space narrowing with surrounding endplate signal changes. There is dorsal spondylosis narrowing the anterior subarachnoid space with possible mass effect on the left greater than right ventral nerve root. There is ligamentum flavum hypertrophy and mild narrowing of the AP dimension of the central subarachnoid space. There is severe left and moderate right foramen stenosis from facet and uncovertebral joint hypertrophic changes on the gradient echo images. The axial T2 weighted images suggest there may be greater right foramen stenosis. C7-T1: There is greater peripheral disc space narrowing with endplate degenerative signal changes.There is mild dorsal spondylosis and ligamentum flavum hypertrophy without significant central canal stenosis. There is facet and uncovertebral joint hypertrophic changes with severe left and moderate to severe right foramen stenosis. There are mild degenerative changes in thoracic region with mild anterior indentation on the subarachnoid space from spondylosis. The study was not performed for proper imaging of the soft tissue structures in the neck and upper chest. No definite incidental thyroid mass is seen although artifacts obscure the thyroid gland region. The left vertebral artery is larger than the right. 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 [id number] Procedure Note Hm Interface, Radiology Results Incoming - 09/13/2018 4:53 PM RUBBER PRINTING MACHINE OPERATOR EXAMINATION: MRI CERVICAL SPINE WO CONTRAST CLINICAL HISTORY: M54.2 Cervicalgia, M54.2 COMPARISON: None TECHNIQUE: Multiplanar multisequence noncontrast enhanced examination was performed of the cervical spine. FINDINGS: There is straightening of the cervical lordosis. The craniovertebral junction is unremarkable. There is decreased T2 signal intensity in multiple discs. C2-3: There is mild central spondylosis and ligamentum flavum hypertrophy. There is no significant central canal stenosis. There are facet and uncovertebral joint hypertrophic changes with mild to moderate foramen stenosis on the axial gradient echo images in part congenital in nature. C3-4: There is greater peripheral disc space narrowing with dorsal spondylosis touching the anterior central cord. There is ligamentum flavum hypertrophy. There is mild narrowing of the AP dimension of the central subarachnoid space. There is severe foramen stenosis from facet and uncovertebral joint hypertrophic changes. Spondylosis extends near the right nerve roots in the lateral subarachnoid space. C4-5: There is mild anterolisthesis with greater anterior disc space narrowing. There is uncovered disc and spondylosis with central protrusion touching the anterior cord. There may be mass effect on the ventral nerve roots. There is mild narrowing of the AP dimension of the central subarachnoid space. The severe foramen stenosis from facet and uncovertebral joint hypertrophic changes. C5-6: There is severe peripheral disc space narrowing. There is dorsal spondylosis touching the anterior cord with possible mass effect on the ventral nerve roots. There is ligamentum flavum hypertrophy indenting the posterior lateral subarachnoid space. There is moderate narrowing of the AP dimension of the central subarachnoid space. There is severe foramen stenosis from facet and uncovertebral joint hypertrophy. C6-7: There is severe disc space narrowing with surrounding endplate signal changes. There is dorsal spondylosis narrowing the anterior subarachnoid space with possible mass effect on the left greater than right ventral nerve root. There is ligamentum flavum hypertrophy and mild narrowing of the AP dimension of the central subarachnoid space. There is severe left and moderate right foramen stenosis from facet and uncovertebral joint hypertrophic changes on the gradient echo images. The axial T2 weighted images suggest there may be greater right foramen stenosis. C7-T1: There is greater peripheral disc space narrowing with endplate degenerative signal changes. There is mild dorsal spondylosis and ligamentum flavum hypertrophy without significant central canal stenosis. There is facet and uncovertebral joint hypertrophic changes with severe left and moderate to severe right foramen stenosis. There are mild degenerative changes in thoracic region with mild anterior indentation on the subarachnoid space from spondylosis. The study was not performed for proper imaging of the soft tissue structures in the neck and upper chest. No definite incidental thyroid mass is seen although artifacts obscure the thyroid gland region. The left vertebral artery is larger than the right. 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 [facility]-[id number] Performing Organization Address [facility]/Zipcode Phone Number [facility] [address] [place] [address] * XR Chest 2 Vw (08/14/2018 1:45 PM CDT) Specimen Narrative Performed At EXAMINATION:XR CHEST 2 VW RADIANT CLINICAL HISTORY:R06.00 Dyspneaunspecified, r06.02 IMPRESSION: Aortic arch calcified. Heart size is normal. Lungs are clear. Bones are osteopenic. No change from 07/11/2016. [facility]-[id number] Procedure Note Interface, Radiology Results Incoming - 08/14/2018 2:00 PM CDT EXAMINATION: XR CHEST 2 VW CLINICAL HISTORY: R06.00 Dyspnea unspecified, r06.02 IMPRESSION: Aortic arch calcified. Heart size is normal. Lungs are clear. Bones are osteopenic. No change from 07/11/2016. [facility]-[id number] Performing Organization Address [facility]/Zipcode Phone Number [facility] [address] [place] [phone] * BUN level (08/06/2018 11:20 AM CDT) BUN 23 8 - 23 mg/dL [facility] DEPARTMENT OF PATHOLOGY AND GENOMIC MEDICINE Specimen Plasma specimen Performing Organization Address [facility] [place] [address] PATHOLOGY AND GENOMIC MEDICINE * Creatinine level (08/06/2018 11:20 AM CDT) Creatinine 1.14 0.70 - 1.20 mg/dL [facility] DEPARTMENT OF PATHOLOGY AND GENOMIC MEDICINE Specimen Plasma specimen Performing Organization Address [facility] [address] PATHOLOGY AND GENOMIC MEDICINE * Electrolytes (Chem4) (08/06/2018 11:20 AM CDT) Sodium 142 135 - 148 mEq/L [facility] DEPARTMENT OF PATHOLOGY AND GENOMIC MEDICINE Potassium 4.4 3.5 - 5.0 mEq/L [facility] DEPARTMENT OF PATHOLOGY AND GENOMIC MEDICINE Chloride 102 98 - 112 mEq/L [facility] DEPARTMENT OF PATHOLOGY AND GENOMIC MEDICINE CO2 27 24 - 31 mEq/L [facility] DEPARTMENT OF PATHOLOGY AND GENOMIC MEDICINE Anion gap 13@ANIO 7 - 15 mEq/L [facility] DEPARTMENT OF PATHOLOGY AND GENOMIC MEDICINE Specimen Plasma specimen Performing Organization Address City/State/Zipcode Phone Number [facility] DEPARTMENT OF [address] [place] [address] PATHOLOGY AND GENOMIC MEDICINE after 05/10/2018 Insurance Type Payer Benefit Subscriber ID Effective Phone Address Plan / Dates Group Medicare MEDICARE MEDICARE xxxxxxxxxxx [id number] MIKE, PART A AND resent [place] B PPO BCBS BCBS xxxxxxxxx [id number] CHOICE resent PPO/[employer] PPO Advance Directives Patient has advance care planning documents on file. For more information, bro stewart contact: Rashid Rosas [address] [place] [address]
--- OUTSIDE RECORDS SUMMARY | 2019-05-11 11:14 | XMS REPORT ---
Author Author [facility] Address Unknown Phone Unavailable Care Team Providers Care Realtime Court Reporter Name Role Phone NAILA HENRY Unavailable Unavailable Problems This patient has no known problems. Allergies, Adverse Reactions, Alerts This patient has no known allergies or adverse reactions. Medications This patient has no known medications. Results Test Description Test Time Test Comments Text Results Atomic Results Result Comments CHEST 2 VIEWS [place] [id number] [place] [address] Patient Name: LAKSHMI PENA MR #: [id number] : 1935 Age/Sex: 82/M Req #: [id number] Adm Physician: Ordered by: NAILA HENRY MD Report #: [id number] Location: [facility] Room/Bed: Procedure: [id number] DX/CHEST 2 VIEWS Exam Date: 07/31/17 Exam Time: 1010 REPORT STATUS: Signed PROCEDURE: Frontal and lateral views of the chest. COMPARISON: Chest 2 views 10/09/2012. INDICATIONS: RULED OUT PNEUMONIA FINDINGS: Lines/tubes: None. Lungs: The lungs are well inflated and clear. There is no evidence of pneumonia or pulmonary edema. Pleura: There is no pleural effusion or pneumothorax. Heart and mediastinum: The heart and the mediastinum are normal. Atherosclerotic calcifications. Bones: No acute bony abnormality. Degenerative changes of the thoracic spine. IMPRESSION: No acute radiographic abnormality. Dictated by: Eva Mcfarland M.D. on 07/31/2017 at 11:00 Electronically approved by: Eva Mcfarland M.D. on 07/31/2017 at 11:00 Dictated By: EVA MCFARLAND MD 1100 Transcribed By: ROBERT on 07/31/17 1100 COPY TO: NAILA HENRY MD
--- NOTE | 2019-05-11 12:04 | Operative Report ---
DATE OF PROCEDURE: 05/11/2019 SURGEON: Macho Kirkpatrick MD PROCEDURES: EGD with biopsies and esophageal dilatation and colonoscopy. INDICATION FOR EGD: Dysphagia. INDICATIONS FOR COLONOSCOPY: Surveillance colonoscopy, personal history of colon polyps, strong family history of colon cancer. MEDICATION: The patient was done under MAC, please see anesthesiologist's note. PROCEDURE IN DETAIL: With the patient in left lateral decubitus position, a flexible fiberoptic Olympus gastroscope was introduced into the esophagus under direct visualization without any difficulty. There was some patchy erythema noted in distal esophagus. A mild stricture was noted at the GE junction that was dilated to size 52-Bul[place] Tavares. The scope was then advanced with ease into the stomach. Mucosa overlying the antrum and the body revealed some diffuse erythema and moderate edema and biopsies were obtained and sent to stain for H. pylori. Pylorus appeared to be of normal contour and shape, it was intubated with ease and the scope was advanced all the way to the second portion of the duodenum. The scope was then withdrawn slowly. Mucosa overlying the second portion appeared to be within normal limits. There was some focal nodularity noted in the duodenal bulb along the anterior wall that was biopsied. The scope was then withdrawn back into the stomach and retroflexed mucosa overlying the fundus and cardia appeared to be within normal limits. The scope was then straightened out, it was subsequently withdrawn, and the patient tolerated the procedure well. IMPRESSION: 1. Distal esophagitis. 2. Esophageal stricture at GE junction dilated to size 52-Bul[place] Tavares. 3. Gastritis, biopsied, biopsies sent to stain for Helicobacter pylori. 4. Focal nodularity duodenal bulb, biopsied. PLAN: Follow up histology. Initiate Protonix 40 mg one p.o. q.a.m. before meals. COLONOSCOPY: The patient was then turned around and after adequate lubrication of the anal canal, a flexible fiberoptic Olympus colonoscope was inserted into the rectum with ease and advanced all the way to the cecum. It was then withdrawn slowly. Mucosa overlying the cecum, ascending colon, transverse, descending, sigmoid, and rectum appeared to be within normal limits. The scope was then retroflexed into the distal rectum and small internal hemorrhoids were noted, none of which was actively bleeding. The scope was then straightened out, it was subsequently withdrawn, and the patient tolerated the procedure well. IMPRESSION: Internal hemorrhoids, none actively bleeding. PLAN: Initiate a high-fiber, low-fat diet. Initiate high-fiber supplement. We will discuss with the patient regarding the need for any followup colonoscopy. MD ANIBAL Garcia/CB /[id number] cc: Andrés Esparza MD
--- OUTSIDE RECORDS SUMMARY | 2019-05-13 15:12 | XMS REPORT | Clinical Summary ---
Author Author Rashid Bahai Organization Mike Bahai Address Unknown Phone Unavailable Care Team Providers Care Retail Visual Merchandiser Name Role Phone Eric Max MD PCP [...] (HCC) 12/04/2018 Transcribe Access Orders Natalia Helm, CARDIAC REHABILITATION PROGRAM DIRECTOR 10/19/2018 Anesthesia Urology Event Gigi Johnston MD CYSTO, SALINE TURP (BIPOLAR), LITHOLAPAXY 10/19/2018 Surgery Urology Gigi Johnston MD Benign localized hyperplasia of prostate with urinary retention; Bladder stone 10/19/2018 [facility] General Internal Medicine - Encounter 10/24/2018 Gigi [...] (Primary Dx); Palpitations 08/06/2018 Lab Lab after 05/12/2018 Social History Date Tobacco Use Types Packs/Day [...] Taken Vital Sign Reading 10/24/2018 10:41 AM DESIGNER WRITER Blood Pressure 111/61 10/24/2018 1:29 PM DESIGNER WRITER Pulse 66 10/24/2018 10:41 AM DESIGNER WRITER Temperature 36 C (96.8 F) 10/24/2018 1:29 PM DESIGNER WRITER Respiratory Rate 18 10/24/2018 1:15 PM DESIGNER WRITER Oxygen Saturation 94% - Inhaled Oxygen - Concentration 10/19/2018 12:26 PM DESIGNER WRITER Weight 113 kg (249 lb) 10/19/2018 12:26 PM DESIGNER WRITER Height 190.5 cm (6' 3") 10/19/2018 12:26 PM DESIGNER WRITER Body Mass Index 31.12 Plan of Treatment Care Team Description Date Type Specialty Eric Max MD [address] [facility] [address] [place] [address] 05/22/2019 Appointment Radiology Health Maintenance Due Date Last Done Comments SHINGLES VACCINES (#1) 1986 65+ PNEUMOCOCCAL VACCINE 2001 07/30/2016 (2 of 2 - PPSV23) INFLUENZA VACCINE 05/30/2019 05/19/2018 Procedures Comments Procedure Name Priority Date/Time Associated Diagnosis XR SPINE SCOLIOSIS 2-3 Routine 01/03/2019 Back pain, unspecified VIEWS 1:39 PM DESIGNER WRITER back location, unspecified back pain laterality, unspecified chronicity MRA NECK WO CONTRAST Routine 12/07/2018 Dizziness and giddiness 1:51 PM DESIGNER WRITER Other cerebral infarction due to occlusion or stenosis of small artery Cerebral infarction, unspecified mechanism (HCC) MRA HEAD WO CONTRAST Routine 12/07/2018 Dizziness and giddiness 1:51 PM DESIGNER WRITER Other cerebral infarction due to occlusion or stenosis of small artery Cerebral infarction, unspecified mechanism (HCC) MRI BRAIN WO CONTRAST Routine 12/07/2018 Dizziness and giddiness 1:51 PM DESIGNER WRITER Other cerebral infarction due to occlusion or stenosis of small artery Cerebral infarction, unspecified mechanism (HCC) HC COMPLETE BLD COUNT Routine 10/23/2018 W/AUTO DIFF 4:30 AM DESIGNER WRITER ESTIMATED GFR Routine 10/23/2018 4:00 AM DESIGNER WRITER BASIC METABOLIC PANEL Routine 10/23/2018 4:00 AM DESIGNER WRITER ESTIMATED GFR Routine 10/22/2018 4:30 AM DESIGNER WRITER B NATRIURETIC PEPTIDE Routine 10/22/2018 4:30 AM DESIGNER WRITER HC COMPLETE BLD COUNT Routine 10/22/2018 W/AUTO DIFF 4:30 AM DESIGNER WRITER BASIC METABOLIC PANEL Routine 10/22/2018 4:30 AM DESIGNER WRITER ARTERIAL BLOOD GAS Routine 10/22/2018 4:00 AM DESIGNER WRITER NM LUNG VENTILATION STAT 10/21/2018 PERFUSION 10:[address] CHEST WO CONTRAST Routine 10/21/2018 3:35 PM DESIGNER WRITER ECHOCARDIOGRAM 2D Routine 10/21/2018 COMPLETE W MMODE SPECTRAL 9:57 AM DESIGNER WRITER COLOR DOPPLER ([id number]) ESTIMATED GFR Routine 10/21/2018 4:15 AM DESIGNER WRITER HC COMPLETE BLD COUNT Routine 10/21/2018 W/AUTO DIFF 4:15 AM DESIGNER WRITER BASIC METABOLIC PANEL Routine 10/21/2018 4:15 AM DESIGNER WRITER ECG 12-LEAD Routine 10/20/2018 9:21 PM DESIGNER WRITER XR CHEST 1 VW PORTABLE Routine 10/20/2018 9:00 PM DESIGNER WRITER ECG PRE/POST OP STAT 10/19/2018 6:59 PM DESIGNER WRITER SURGICAL PATHOLOGY Routine 10/19/2018 REQUEST 3:54 PM DESIGNER WRITER CALCULI ANALYSIS WITH Routine 10/19/2018 PHOTO 3:54 PM DESIGNER WRITER OH AN ELECTIVE Routine 10/19/2018 SUPRAGLOTTIC AIRWAY 3:17 PM DESIGNER WRITER Procedure Note - Aria Brand CRNA - 10/19/2018 3:17 PM DESIGNER WRITER ANESTHESIA INTUBATION Performed by: Aria Brand CRNA [...] TURP 10/19/2018 Benign localized (BIPOLAR) 1:30 PM DESIGNER WRITER hyperplasia of prostate with urinary retention Bladder stone Case Notes REQ 1230 START, @0943 TUCKER R/S FROM 10/10 TO 10/11-09/01 0/18TW Special Needs REQ 1230 START,POSS IBLE EXTENDED RECOVERY NEEDED ESTIMATED GFR Routine 10/04/2018 10:39 AM DESIGNER WRITER URINALYSIS SCREEN AND Routine 10/04/2018 Preop examination MICROSCOPY, WITH REFLEX 10:39 AM DESIGNER WRITER TO CULTURE CBC HEMOGRAM Routine 10/04/2018 Preop examination 10:39 AM DESIGNER WRITER PARTIAL THROMBOPLASTIN Routine 10/04/2018 Preop examination TIME (PTT) 10:39 AM DESIGNER WRITER PROTHROMBIN TIME WITH INR Routine 10/04/2018 Preop examination 10:39 AM DESIGNER WRITER BASIC METABOLIC PANEL Routine 10/04/2018 Preop examination 10:39 AM DESIGNER WRITER URINE CULTURE Routine 10/04/2018 10:39 AM DESIGNER WRITER GRAM STAIN Routine 10/04/2018 10:39 AM DESIGNER WRITER MRI CERVICAL SPINE WO Routine 09/13/2018 Cervical pain CONTRAST 1:28 PM DESIGNER WRITER XR CHEST 2 VW Routine 08/14/2018 Dyspnea, [...] of breath 11:20 AM CDT Palpitations after 05/12/2018 Results * XR Spine Scoliosos 2-3 Views (01/03/2019 1:39 PM DESIGNER WRITER) Specimen Narrative Performed At [facility] AP and lateral x-ray of the entire spine were done.They show overall his alignment is quite good.He does have multilevel cervical spondylosis. No natanael malalignment. Performing Organization Address City/State/Zipcode Phone Number [facility] [address] [place] [address] * MRI Brain Wo Contrast (12/07/2018 1:51 PM DESIGNER WRITER) Specimen Narrative Performed At EXAMINATION: MRI BRAIN WO CONTRAST [facility] CLINICAL HISTORY: R42 Dizziness and giddiness, I63.81 [...] the brain or extra axial region. [facility]-[id number] Procedure Note Interface, Radiology Results Incoming - 12/07/2018 2:30 PM DESIGNER WRITER EXAMINATION: MRI BRAIN WO CONTRAST CLINICAL HISTORY: [...] the brain or extra axial region. [facility]-[id number] Performing Organization Address City/State/Zipcode Phone Number [facility] [address] [place] [address] * MRA Neck Wo Contrast (12/07/2018 1:51 PM DESIGNER WRITER) Specimen Narrative Performed At [facility] EXAMINATION: MRA NECK WO CONTRAST CLINICAL HISTORY: R42 Dizziness and giddiness, I63.81 Other cerebral infarction due to occlusion or stenosis of small artery, I63.81I63.89R42. Evaluate for artery stenosis COMPARISON:None TECHNIQUE: 2-D and 3-D [id number] MRA images of the cervical vessels were [...] no significant stenosis by NASCET criteria. [facility]-[id number] Procedure Note Interface, Radiology Results Incoming - 12/07/2018 2:30 PM DESIGNER WRITER EXAMINATION: MRA NECK WO CONTRAST CLINICAL HISTORY: R42 Dizziness and giddiness, I63.81 Other cerebral infarction due to occlusion or stenosis of small artery, I63.81 I63.89 R42. Evaluate for artery stenosis COMPARISON: None TECHNIQUE: 2-D and 3-D [id number] MRA images of the cervical vessels were [...] no significant stenosis by NASCET criteria. [facility]-[id number] Performing Organization Address City/State/Zipcode Phone Number [facility] [address] [place] [address] * MRA Head Wo Contrast (12/07/2018 1:51 PM DESIGNER WRITER) Specimen Narrative Performed At EXAMINATION: MRA HEAD WO CONTRAST [facility] CLINICAL HISTORY: R42 Dizziness and giddiness, I63.81 Other cerebral infarction due to occlusion or stenosis of small artery, I63.81I63.89R42. Evaluate for artery stenosis COMPARISON:None. TECHNIQUE: [id number] MRA images of the [place] vessels were obtained with multiplanar and 3-D reconstructive algorithms. FINDINGS: There is flow in the anterior communicating artery. There is no evidence of significant focal stenosis in the major arteries forming the [place]. The distal vertebral and basilar and distal internal carotid arteries do not show significant focal stenosis. I do not see definite evidence of aneurysm or arterial venous malformation. IMPRESSION: Unremarkable MRA of the [place] with no significant abnormality. [facility]-[id number] Procedure Note Interface, Radiology Results Incoming - 12/07/2018 2:31 PM DESIGNER WRITER EXAMINATION: MRA HEAD WO CONTRAST CLINICAL HISTORY: R42 Dizziness and giddiness, I63.81 Other cerebral infarction due to occlusion or stenosis of small artery, I63.81 I63.89 R42. Evaluate for artery stenosis COMPARISON: None. TECHNIQUE: [id number] MRA images of the [place] vessels were obtained with multiplanar and 3-D reconstructive algorithms. FINDINGS: There is flow in the anterior communicating artery. There is no evidence of significant focal stenosis in the major arteries forming the [place]. The distal vertebral and basilar and distal internal carotid arteries do not show significant focal stenosis. I do not see definite evidence of aneurysm or arterial venous malformation. IMPRESSION: Unremarkable MRA of the [place] with no significant abnormality. [facility]-[id number] Performing Organization Address City/State/Zipcode Phone Number [facility] [address] [place] [address] * CBC with platelet and differential (10/23/2018 4:30 AM DESIGNER WRITER) Only the most recent of 4 results within the time period is included. WBC 6.89 4.50 - 11.00 k/uL [facility] RBC 3.99 (L) 4.40 - 6.00 m/uL [facility] HGB 11.7 (L) 14.0 - 18.0 g/dL [facility] HCT 35.7 (L) 41.0 - 51.0 % [facility] MCV 89.5 82.0 - 100.0 fL [facility] MCH 29.3 27.0 - 34.0 pg [facility] MCHC 32.8 31.0 - 37.0 g/dL [facility] RDW - SD 42.6 37.0 - 55.0 fL [facility] MPV 11.4 8.8 - 13.2 fL [facility] Platelet count 123 (L) 150 - 400 k/uL [facility] Nucleated RBC 0.00 /100 WBC [facility] Neutrophils 66.2 39.0 - 69.0 % [facility] Lymphocytes 21.6 (L) 25.0 - 45.0 % [facility] Monocytes 9.3 0.0 - 10.0 % [facility] Eosinophils 1.9 0.0 - 5.0 % [facility] Basophils 0.7 0.0 - 1.0 % [facility] Immature 0.3Comment: "Immature 0.0 - 1.0 % [place] granulocytes granulocytes" (promyelocytes, SPIRITISM myelocytes, metamyelocytes) [facility] Specimen Blood Performing Organization Address City/State/Zipcode Phone Number [facility] DEPARTMENT OF [address] [place] [address] PATHOLOGY AND GENOMIC MEDICINE [place] [id number] * Estimated GFR (10/23/2018 4:00 AM DESIGNER WRITER) Only the most recent of 5 results within the time period is included. [facility] Estimated GFR 68 mL/min/1.73 m2 [place] Comment: [facility] rpretation G1 >=90 Normal or high G2 60-89Mildly decreased R5w11-59 Mildly to moderately decreased A3k89-17 Moderately to severely decreased G4 15-29Severely decreased G5 <15Kidney failure The eGFR was calculated using the Chronic Kidney Disease Epidemiology Collaboration (CKD-EPI) equation. Interpretation is based on recommendations of the National Kidney Foundation-Kidney Disease Outcomes Quality Initiative (NKF-KDOQI) published in 2014. Specimen Plasma specimen Performing Organization Address City/[facility] Phone Number [facility] [address] * Basic metabolic panel (10/23/2018 4:00 AM DESIGNER WRITER) Only the most recent of 4 results within the time period is included. [facility] Sodium 139 135 - 148 mEq/L [facility] Potassium 3.5 3.5 - 5.0 mEq/L [facility] Chloride 101 98 - 112 mEq/L [facility] CO2 26 24 - 31 mEq/L [facility] Anion gap 12@ANIO 7 - 15 mEq/L [facility] BUN 21 8 - 23 mg/dL [facility] Creatinine 1.02 0.70 - 1.20 mg/dL [facility] Glucose 136 (H) 65 - 99 mg/dL [facility] Calcium 8.9 8.8 - 10.2 mg/dL [facility] Specimen Plasma specimen Performing Organization Address City/[facility] Cent[facility]ode Phone Number [facility] [place] [address] PATHOLOGY AND [facility] MEDICINE [address] * B natriuretic peptide (10/22/2018 4:30 AM DESIGNER WRITER) [facility] BNP 586 (H) 0 - 100 pg/mL [facility] Specimen Blood Performing Organization Address City/[facility] Centercode Phone Number [facility] [place] [address] PATHOLOGY AND [facility] MEDICINE [address] * Arterial blood gas (10/22/2018 4:00 AM DESIGNER WRITER) pH, arterial 7.37 7.35 - 7.45 [facility] pCO2, arterial 49 (H) 35 - 45 mmHg [facility] pO2, arterial 97 (H) 80 - 90 mmHg [facility] Bicarbonate, 27.7 21.0 - 28.0 mmol/L [facility] Base excess, 2 -2 - 2 mEq/L [facility] O2 saturation, 98 95 - 100 % [facility] Specimen Blood Performing Organization Address [facility] Centercode Phone Number [facility] DEPARTMENT OF [address] [place] [address] PATHOLOGY AND GENOMIC MEDICINE [address] [address] [facility] * NM Lung Ventilation Perfusion (10/21/2018 10:52 PM DESIGNER WRITER) Specimen Narrative Performed At PROCEDURE:PA LUNG VENTILATION PERFUSION [facility] INDICATION:Dyspnea. COMPARISON:CT chest dated same day. TECHNIQUE:Planar [...] defects. IMPRESSION: 1.Low probability for PE. [id number] Procedure Note Interface, Radiology Results Incoming - 10/21/2018 11:14 PM DESIGNER WRITER PROCEDURE: NM LUNG VENTILATION PERFUSION INDICATION: Dyspnea. [...] IMPRESSION: 1. Low probability for PE. [id number] Performing Organization Address City/[facility] Centercode Phone Number [facility] [address] [place] [address] * CT Chest Wo Contrast (10/21/2018 3:35 PM DESIGNER WRITER) Specimen Narrative Performed At EXAMINATION: [facility] CT [...] AP diameter. 3.Other incidental findings as above. [id number] Procedure Note Interface, Radiology Results Incoming - 10/21/2018 3:55 PM DESIGNER WRITER EXAMINATION: CT CHEST WO CONTRAST CLINICAL HISTORY: [...] diameter. 3. Other incidental findings as above. [facility]-[id number] Performing Organization Address City/State/Zipcode Phone Number [facility] [address] [facility], [place] [address] * Echocardiogram complete w contrast and 3D if needed (10/21/2018 9:57 AM DESIGNER WRITER) Specimen Narrative Performed At [facility] Echocardiography Report [address] [facility] [address], [place] [id number] Pat.Name:LAKSHMI SHEPPARD Pat.ID:[id number] St.Date: 10/21/2018Refer.MD:Gigi Johnston MD Exam Time: 9:06:00 AMStudy Type:Routine Echo Height:75inWeight:250lb BSA: 2.41 m2 DOBAge:1935,83Y Sex: MALEBP:80/42 HR:52 bpmSonogrphr: PIERCE Nuñez, [facility] Pat. Stat.:Inpatient Room:[facility] Study Status:Final Echo Event ID:[id number] Order ID:[id number] Reason for Study:Hypotension Procedures:2D Echo, Colorflow Doppler, [...] PA systolic pressure. MEASUREMENTS: 2D Parasternal Long [place] LVOT 2.5 cmLA Ds5.3 cm LVIDd4.9 cmIndex2 cm/m Ao An2.1 cm LVIDs3.3 cmAo Rtd 4 cm Index1.7 cm/m LV%fs 32.7 % LV Jhdq080.7 g(122-174) IVSd 1.3 cmLVM Fhahr518.3 g/m2 LVPWd1.3 cmRWT0.5 LA Sng Plane LA Area 36.1 cm2(8.8-23.4) LA Vol 157.5 ml Index65.4 ml/m LA LngAx 7.5 cm Signed 10/21/2018 09:05 PM Shruthi Shane M.D. Procedure Note Interface, Radiology Results In - 10/21/2018 9:05 PM DESIGNER WRITER Echocardiography Report [address] [place] [address] Pat.Name: LAKSHMI SHEPPARD Pat.ID: [id number] .Date: 10/21/2018 Refer.MD: Gigi Johnston MD Exam Time: 9:06:00 AM Study Type:Routine Echo Height: 75in Weight: 250lb BSA: 2.41 m2 Age: 8 1935,83Y Sex: MALE BP: 80/42 HR: 52 bpm Sonogrphr: PIERCE Nuñez, [facility] Pat. Stat.:Inpatient Room: [facility] Study Status:Final Echo Event ID:[id number] Order ID: [id number] Reason for Study:Hypotension Procedures:2D Echo, Colorflow Doppler, [...] PA systolic pressure. MEASUREMENTS: 2D Parasternal Long [place] LVOT 2.5 cm LA Ds 5.3 cm [...] PM Shruthi Shane M.D. Performing Organization Address [facility] Centercoil Phone Number [facility] [address] [place] [address] * ECG 12 lead (10/20/2018 9:21 PM DESIGNER WRITER) Ventricular 65 [facility] rate Atrial rate 65 [facility] OH interval 162 [facility] QRSD interval 98 [facility] QT interval 410 [facility] QTC interval 426 [facility] P axis 1 15 [facility] QRS axis 1 26 [facility] T wave axis 56 [facility] EKG impression Sinus rhythm with occasional [facility] premature ventricular complexes-Otherwise normal ECG-In automated comparison with ECG of 19-OCT-2018 18:59,-premature ventricular complexes are now present- Specimen Narrative Performed At Performing Organization Address [facility] Phone Number [facility] [address] [place] [address] * XR Chest 1 Vw Portable (10/20/2018 9:00 PM DESIGNER WRITER) Specimen Narrative Performed At EXAMINATION: XR CHEST 1 VW PORTABLE [facility] INDICATION: Asphyxia and hypoxemia COMPARISON: 08/14/2018 IMPRESSION: Low lung volumes. New patchy linear opacities in both lung bases, in part due to atelectasis but also concerning for superimposed aspiration/pneumonia. Trace bilateral pleural effusions. No pneumothorax. Unchanged cardiomediastinal silhouette given differences in lung inflation. Aortic calcifications. Multifocal osseous degenerative changes. [facility]-[id number] Procedure Note Interface, Radiology Results Incoming - 10/20/2018 9:52 PM DESIGNER WRITER EXAMINATION: XR CHEST 1 VW PORTABLE INDICATION: Asphyxia and hypoxemia COMPARISON: 08/14/2018 IMPRESSION: Low lung volumes. New patchy linear opacities in both lung bases, in part due to atelectasis but also concerning for superimposed aspiration/pneumonia. Trace bilateral pleural effusions. No pneumothorax. Unchanged cardiomediastinal silhouette given differences in lung inflation. Aortic calcifications. Multifocal osseous degenerative changes. [facility]-[id number] Performing Organization Address City/[facility] Centercode Phone Number [facility] [address] [place] [address] * ECG Pre/Post Op (10/19/2018 6:59 PM DESIGNER WRITER) Ventricular 72 [facility] rate Atrial rate 72 [facility] OH interval 154 [facility] QRSD interval 88 [facility] QT interval 394 [facility] QTC interval 431 [facility] P axis 1 68 [facility] QRS axis 1 49 [facility] T wave axis 71 [facility] EKG impression Normal sinus rhythm-Normal [facility] ECG-In automated comparison with ECG of -SEP-2013 10:51,-No significant change was found- Specimen Narrative Performed At Performing Organization Address City/State/Zipcode Phone Number [facility] [address] [place] [address] * Calculi analysis with photo (10/19/2018 3:54 PM DESIGNER WRITER) Pathologist [facility] Calculi mass [...] REF LAB (stone) Comment: analysis and Access [facility] Enhanced Report photo using either link below: -Direct access: [email or web address] -Enter Username, Password: [email or web address] Username: [email or web address] Password: [email or web address] Performed by [employer], [address] [place] [address] [email or web address], Ellis Martinez MD - Lab. Director Specimen Serum Narrative Performed At [address] LABORATORY [place] Performing Organization Address City/State/Zipcode Phone Number [facility] [address] [place] [address] [facility] [address] [place] [address] * Surgical pathology request (10/19/2018 3:54 PM DESIGNER WRITER) [facility] DEPARTMENT OF PATHOLOGY AND GENOMIC MEDICINE Surgical See link below for PDF Lab [facility] DE[facility] pathology Report OF PATHOLOGY report AND GENOMIC MEDICINE Result status This is Final Report for [facility] [id number] OF PATHOLOGY AND GENOMIC MEDICINE Specimen Narrative Performed At [address] DEPARTMENT OF [place] PATHOLOGY AND GENOMIC MEDICINE Performing Organization Address City/[facility]/Zipcode Phone Number [facility] [place] [place] [address] PATHOLOGY AND GENOMIC MEDICINE * Urinalysis screen and microscopy, with reflex to culture (10/04/2018 10:39 AM DESIGNER WRITER) Specimen site Clean catch [facility] Color, UA Dark Yellow [facility] Appearance, UA Clear [facility] Specific 1.019 1.001 - 1.035 [place] gravity, [facility] pH, UA 6.0 5.0 - 8.5 [facility] Protein, UA 2+ (A) Negative [facility] Glucose, UA Negative Negative [facility] Ketones, UA Negative Negative [facility] Bilirubin, UA Negative Negative [facility] Blood, UA Negative Negative [facility] Nitrite, UA Negative Negative [facility] Urobilinogen, <2.0 <2.0 [facility] Leukocyte Trace (A) Negative [place] esterase, [facility] Epithelial <1 /HPF [place] cells, [facility] WBC, UA 3 (H) 0 - 1 /HPF [facility] RBC, UA <1 0 - 5 /HPF [facility] Bacteria, UA Few None seen [facility] Yeast, UA None seen [facility] Yeast with None seen [place] pseudohyphae, [facility] Hyaline casts, >20 (A) /LPF [facility] Specimen Urine Performing Organization Address City/State/Zipcode Phone Number [facility] [place] [address] PATHOLOGY AND [facility] MEDICINE [address] * Partial thromboplastin time, activated (10/04/2018 10:39 AM DESIGNER WRITER) Pathologist [facility] [place] PTT 30.0 23.0 - 36.0 sec [place] Comment: [facility] PTT therapeutic range for HOSPITAL unfractionated heparin is 61.0-112.0 seconds which corresponds to Anti-Xa 0.3-0.7 U/ml. Specimen Blood Performing Organization Address City/[facility]/Zipcode Phone Number [facility] [place] [place] [address] PATHOLOGY AND [facility] MEDICINE [address] * Prothrombin time with INR (10/04/2018 10:39 AM DESIGNER WRITER) Pathologist [facility] [place] Prothrombin 13.3 11.5 - 14.5 sec [facility] INR 1.0 [place] Comment: [facility] The International Normalized HOSPITAL Ratio (INR) is a therapeutic monitoring tool for patients who are stable on oral anticoagulant therapy. An INR of 2.0-3.0 is suggested for deep vein thrombosis/pulmonary embolism. Specimen Blood Performing Organization Address City/[facility] Cent[facility]ode Phone Number [facility] [place] [address] PATHOLOGY AND [facility] MEDICINE [address] * Gram stain (10/04/2018 10:39 AM DESIGNER WRITER) [facility] Gram stain Rare WBC's [place] result No organisms seen [facility] Comment: HOSPITAL Specimen Information Specimen Source: Urine Specimen Site: Clean catch Specimen Urine Performing Organization Address City/[facility]/Zipcode Phone Number [facility] DEPARTMENT OF [address] [place] [address] PATHOLOGY AND [facility] MEDICINE [address] * CBC hemogram (10/04/2018 10:39 AM DESIGNER WRITER) [facility] WBC 5.43 4.50 - 11.00 k/uL [facility] RBC 4.53 4.40 - 6.00 m/uL [facility] HGB 13.8 (L) 14.0 - 18.0 g/dL [facility] HCT 42.0 41.0 - 51.0 % [facility] MCV 92.7 82.0 - 100.0 fL [facility] MCH 30.5 27.0 - 34.0 pg [facility] MCHC 32.9 31.0 - 37.0 g/dL [facility] RDW - SD 45.9 37.0 - 55.0 fL [facility] MPV 11.1 8.8 - 13.2 fL [facility] Platelet count 134 (L) 150 - 400 k/uL [facility] Nucleated RBC 0.00 /100 WBC [facility] Specimen Blood Performing Organization Address City/[facility]ode Phone Number [facility] [address] [place] [address] PATHOLOGY AND GENOMIC MEDICINE [address] * Urine culture (10/04/2018 10:39 AM DESIGNER WRITER) Urine culture Mixed jennifer <=10-3 col/cc [place] isolate Comment: SPIRITISM Specimen Information HOSPITAL Specimen Source: Urine Specimen Site: Clean catch Specimen Urine Performing Organization Address City/[facility]ode Phone Number [facility] [place] [address] PATHOLOGY AND GENOMIC MEDICINE [address] * MRI Cervical Spine Wo Contrast (09/13/2018 1:28 PM DESIGNER WRITER) Specimen Narrative Performed At EXAMINATION: MRI CERVICAL [...] at C5-6. Multilevel foramen stenosis as described. [id number] Procedure Note Hm Interface, Radiology Results Incoming - 09/13/2018 4:53 PM DESIGNER WRITER EXAMINATION: MRI CERVICAL SPINE WO CONTRAST CLINICAL [...] at C5-6. Multilevel foramen stenosis as described. [facility]-[id number] Performing Organization Address [facility]/Zipcode Phone Number [facility] [address] [place] [address] * XR Chest 2 Vw (08/14/2018 1:45 PM CDT) Specimen Narrative Performed At EXAMINATION:XR CHEST 2 VW RADIANT CLINICAL HISTORY:R06.00 Dyspneaunspecified, r06.02 IMPRESSION: Aortic arch calcified. Heart size is normal. Lungs are clear. Bones are osteopenic. No change from 07/11/2016. [facility]-[id number] Procedure Note Interface, Radiology Results Incoming - 08/14/2018 2:00 PM CDT EXAMINATION: XR CHEST 2 VW CLINICAL HISTORY: R06.00 Dyspnea unspecified, r06.02 IMPRESSION: Aortic arch calcified. Heart size is normal. Lungs are clear. Bones are osteopenic. No change from 07/11/2016. [facility]-[id number] Performing Organization Address [facility]/Zipcode Phone Number [facility] [address] [place] [id number] * BUN level (08/06/2018 11:20 AM CDT) BUN 23 8 - 23 mg/dL [facility] DEPARTMENT OF PATHOLOGY AND GENOMIC MEDICINE Specimen Plasma specimen Performing Organization Address [facility] [place] [address] PATHOLOGY AND GENOMIC MEDICINE * Creatinine level (08/06/2018 11:20 AM CDT) Creatinine 1.14 0.70 - 1.20 mg/dL [facility] DEPARTMENT OF PATHOLOGY AND GENOMIC MEDICINE Specimen Plasma specimen Performing Organization Address [facility] [place] [address] PATHOLOGY AND GENOMIC MEDICINE * Electrolytes (Chem4) (08/06/2018 11:20 AM CDT) Sodium 142 135 - 148 mEq/L [facility] DEPARTMENT OF PATHOLOGY AND GENOMIC MEDICINE Potassium 4.4 3.5 - 5.0 mEq/L [facility] DEPARTMENT OF PATHOLOGY AND GENOMIC MEDICINE Chloride 102 98 - 112 mEq/L [facility] DE[facility] OF PATHOLOGY AND GENOMIC MEDICINE CO2 27 24 - 31 mEq/L [facility]MENT OF PATHOLOGY AND GENOMIC MEDICINE Anion gap 13@ANIO 7 - 15 mEq/L [facility] DEPARTMENT OF PATHOLOGY AND GENOMIC MEDICINE Specimen Plasma specimen Performing Organization Address City/State/Zipcode Phone Number [facility] [address] [place] [address] PATHOLOGY AND GENOMIC MEDICINE after 05/12/2018 Insurance Type Payer Benefit Subscriber ID Effective Phone Address Plan / Dates Group Medicare MEDICARE MEDICARE xxxxxxxxxxx [id number] MIKE, PART A AND resent [place] B PPO BCBS BCBS xxxxxxxxx [id number] CHOICE resent PPO/BERTR[employer] PPO Advance Directives Patient has advance care planning documents on file. For more information, bro stewart contact: Rashid Rosas [address] [place] [address]
== END | disposition home or self-care (01) ==
LOC: OR 06:00
PROVIDERS: ATTEND Internal Medicine Gastroenterology
DX: K22.2 Esophageal obstruction (principal); K29.40 Chronic atrophic gastritis without bleeding; K20.9 Esophagitis, unspecified; K31.89 Other diseases of stomach and duodenum; K64.8 Other hemorrhoids; I71.4 Abdominal aortic aneurysm, without rupture; R42 Dizziness and giddiness; Z01.812 Encounter for preprocedural laboratory examination; Z79.82 Long term (current) use of aspirin
CPT/HCPCS: 36415; 43239; 43450; 45378; 85025; 88305; 88312; J2250; J3010

== ENCOUNTER → 2022-02-08 | Outpatient (CLI) | payer MEDICARE, BC ==
[~2022-02-08] MED LIST changes: -FENTANYL CITRATE/PF 100MCG/2 ML INJ ONE; -HYOSCYAMINE 0.125 MG TAB ONE; -MIDAZOLAM HCL 2 MG/2 ML VIAL ONE
== END ==
LOC: RAD 11:59
PROVIDERS: ATTEND Internal Medicine
DX: M54.50 Low back pain, unspecified (principal); M25.552 Pain in left hip
CPT/HCPCS: 72110

== ENCOUNTER 2022-02-13 14:53 | Emergency (ER) | payer MEDICARE, BC ==
[~2022-02-13] VITALS: Ht 190.5 cm; Wt 108.9 kg
[2022-02-13] MEDS ORDERED: ACYCLOVIR800 MG PO (15:14)
[2022-02-13] MEDS ORDERED: GABAPENTIN100 MG PO (15:15)
== END 2022-02-13 15:30 | disposition home or self-care (01) ==
LOC: ER 15:00
DX: B02.9 Zoster without complications (principal); E78.5 Hyperlipidemia, unspecified; K21.9 Gastro-esophageal reflux disease without esophagitis
CPT/HCPCS: 99283

== ENCOUNTER → 2024-06-18 | Outpatient (REF) | payer MEDICARE, BC ==
[~2024-06-18] MED LIST changes: +ACYCLOVIR800 MG PO; +GABAPENTIN100 MG PO
== END ==
LOC: MRI 10:30
PROVIDERS: ATTEND Pediatrics
DX: I69.954 Hemiplegia and hemiparesis following unspecified cerebrovascular disease affecting left non-dominant side (principal)
CPT/HCPCS: 70551

== ENCOUNTER 2024-10-28 16:00 | Outpatient (RCR) | payer MEDICARE, BC | END 2024-10-29 | LOC: PT 16:00 | PROVIDERS: ATTEND Pediatrics | DX: G20.A1 Parkinson's disease without dyskinesia, without mention of fluctuations (principal) ==

== ENCOUNTER → 2024-11-29 | Outpatient (RCR) | payer MEDICARE, BC | LOC: PT 11-01 10:38 → OT 11-04 14:00 → PT 11-08 07:00 → OT 11-08 07:47 → PT 11-11 17:00 | PROVIDERS: ATTEND Pediatrics | DX: G20.A1 Parkinson's disease without dyskinesia, without mention of fluctuations (principal) ==

== ENCOUNTER → 2024-12-27 | Outpatient (RCR) | payer MEDICARE, BC | LOC: PT 12-03 14:05 | PROVIDERS: ATTEND Pediatrics | DX: G20.A1 Parkinson's disease without dyskinesia, without mention of fluctuations (principal) ==

== ENCOUNTER → 2025-01-30 | Outpatient (REF) | payer MEDICARE, BC | LOC: RAD 12:07 | PROVIDERS: ATTEND Internal Medicine | DX: K73.9 Chronic hepatitis, unspecified (principal); K56.609 Unspecified intestinal obstruction, unspecified as to partial versus complete obstruction | CPT/HCPCS: 74019 ==